=== PATIENT | male | born 1955 | race Caucasian/White ===

== ENCOUNTER 2020-08-25 18:30 | Outpatient (RCR) | payer OTHER, SELFPAY | END 2020-09-04 23:55 | disposition home or self-care (01) | LOC: HO.PAOS 18:30 | PROVIDERS: Visit Provider Psychologist | DX: F33.1 Major depressive disorder, recurrent, moderate (principal); F31.81 Bipolar II disorder; F41.9 Anxiety disorder, unspecified; F12.10 Cannabis abuse, uncomplicated; Z86.59 Personal history of other mental and behavioral disorders | CPT/HCPCS: 90834 ==